=== PATIENT | female | born 1965 | race Caucasian/White ===

== ENCOUNTER 2016-09-28 04:48 | Emergency (ER) | payer OTHER ==
[2016-09-28 05:16] LABS: BASOPHIL 0.5 % (0-2); EOSINOPHIL 3.2 % (0-5); HCT 36.6 % (37.0-47.0); HGB 12.1 g/dl (12.5-16.0); LYMPHOCYTE 26.9 % (15-48); MCH 26.5 pg (25.0-31.0); MCHC 33.1 g/dL (32.0-36.0); MCV 80.3 fL (78.0-100.0); MPV 11.1 fL (6.0-9.5); NEUTROPHIL 54.4 % (41-80); PLT 225 K/uL (150-400); RBC 4.56 M/uL (4.20-5.40); RDW 14.9 % (11.5-14.0); WBC 4.1 K/uL (4.0-10.5)
[2016-09-28 05:19] LABS: INR 1.01 (0.9-1.2); PROTHROMBIN TIME 12.9 SECONDS (11.7-14.0)
[2016-09-28 05:20] LABS: PTT 26.8 SECONDS (23.2-31.4)
[2016-09-28 05:21] LABS: D-DIMER 0.7 ug/mLFEU (0.00-0.41)
[2016-09-28 05:25] LABS: ALBUMIN 3.4 g/dL (3.5-5.0); BILIRUBIN - TOTAL 0.2 mg/dL (0.1-1.0); CREATININE 0.6 mg/dL (0.5-1.0); GLOBULIN (CALCULATION) 2.9 g/dL (2.2-4.2); POTASSIUM 4.2 mmol/L (3.5-5.1); TOTAL PROTEIN 6.3 g/dL (6.4-8.3)
== END 2016-09-28 08:19 | disposition home or self-care (01) ==
LOC: FER 04:48
PROVIDERS: Emergency Medicine
DX: R06.02 Shortness of breath (principal); M62.461 Contracture of muscle, right lower leg; M62.462 Contracture of muscle, left lower leg; G35 Multiple sclerosis; Z79.899 Other long term (current) drug therapy
CPT/HCPCS: 36415; 36600; 71010; 71275; 80053; 82803; 84484; 85025; 85379; 85610; 85730; 93005; Q9967